=== PATIENT | female | born 1980 | race African-American/Black ===

== ENCOUNTER 2016-10-03 14:39 | Inpatient (IN) | payer MEDICAID ==
[~2016-10-03 14:39] MED LIST: AMPICILLIN SODIUM/SULBACTAM NA 3 GM in NORMAL SALINE 100 ML IV SCH
[2016-10-03] MEDS ORDERED: OXYTOCIN/NORMAL SALINE 20 UNIT/1,000 ML RTUINJ ONE (14:54)
[2016-10-03] MEDS ORDERED: LIDOCAINE 1% INJ-PF (10 MG/ML) 30 ML SDV ONE ×2 (15:04→15:34)
[2016-10-03] MEDS ORDERED: MEPERIDINE HCL/PF INJ 25 MG/1 ML DISP.SYRIN ONE (15:04)
[2016-10-03] MEDS ORDERED: AMPICILLIN SOD/SULBACTAM 3 GM VIAL ONE (15:26)
[2016-10-03 15:45] LABS: APPEARANCE,URINE CLEAR; BILIRUBIN,URINE NEGATIVE (NEGATIVE); GLUCOSE, URINE NEGATIVE (NEGATIVE); KETONES,URINE 20 mg/dL (NEGATIVE); LEUKOCYTE ESTERASE,URINE NEGATIVE (NEGATIVE); NITRITE,URINE NEGATIVE (NEGATIVE); PROTEIN,URINE NEGATIVE (NEGATIVE); URINE SPECIFIC GRAVITY 1.008; UROBILINOGEN,URINE NEGATIVE mg/dL (<2.0)
[2016-10-03 15:53] LABS: ABSOLUTE LYMPHOCYTES (AUTO) 0.9 10^3/uL (0.5-4.7); ABSOLUTE MONOCYTES (AUTO) 0.4 10^3/uL (0.1-1.4); ABSOLUTE NEUT (AUTO) 12.8 10^3/uL (1.7-8.2); BASOPHILS % (AUTO) 0.3 % (0-2); HEMATOCRIT 38.4 % (36.0-47.0); HEMOGLOBIN 12.6 g/dL (12.0-15.5); HGB HCT DIFFERENCE -0.6; LYMPHOCYTES % (AUTO) 6.5 % (13-45); MEAN CORPUSCULAR HEMOGLOBIN 25.9 pg (27.0-33.4); MEAN CORPUSCULAR HGB CONC 32.8 g/dL (32.0-36.0); MEAN CORPUSCULAR VOLUME 79 fl (80-97); MONOCYTES % (AUTO) 2.6 % (3-13); RED BLOOD COUNT 4.87 10^6/uL (3.72-5.28); RED CELL DISTRIBUTION WIDTH 17.1 % (11.5-14.0); SEGMENTED NEUTROPHILS % (AUTO) 90.6 % (42-78); WHITE BLOOD COUNT 14.2 10^3/uL (4.0-10.5)
[2016-10-03 15:56] LABS: URINE BARBITURATES SCREEN NEGATIVE; URINE METHADONE SCREEN NEGATIVE; URINE OPIATES LOW NEGATIVE; URINE PHENCYCLIDINE SCREEN NEGATIVE
[2016-10-03] MEDS ORDERED: BENZOCAINE/MENTHOL AEROSOL SPRAY 56 ML TOP PRN (16:10)
[2016-10-03] MEDS ORDERED: ZOLPIDEM TARTRATE 5 MG TABLET PO PRN (16:10)
[2016-10-03] MEDS ORDERED: MEASLES,MUMPS&RUBELLA VACC/PF 0.5 ML VIAL SUBCUT PRN (16:10)
[2016-10-03] MEDS ORDERED: OXYTOCIN/NORMAL SALINE 1,000 ML IV PRN (16:10)
[2016-10-03] MEDS ORDERED: DIBUCAINE 1% OINTMENT 28 GM TP PRN (16:10)
[2016-10-03] MEDS ORDERED: DIPH/PERTUSS(ACELL)/TETANUS VAC/PF 0.5 ML SYR (>=10YO) IM PRN (16:10)
[2016-10-03] MEDS ORDERED: ACETAMINOPHEN WITH CODEINE #3 TABLET PO PRN ×2 (16:10)
[2016-10-03 16:54] LABS: ADD HIVPANEL? NO; HIV (1 AND 2) ANTIBODY NEGATIVE (NEGATIVE)
[2016-10-03] MEDS ORDERED: AMPICILLIN SOD/SULBACTAM 3 GM VIAL IV SCH (18:00)
--- NOTE | 2016-10-03 19:00 | L&D Flow Sheet ---
LD Flowsheet Datetime Report Generated by CPN: 10/03/2016 19:00 Datetime: 10/03/2016 17:54 NBP Sys/Corina/Mean (mmHg): 111 (QS system process) : 68 (QS system process) : 84 (QS system process) Pulse: 64 (QS system process) Respirations: 18 ([facility]) Temperature (F): 98.1 ([facility]) Temperature (C): 36.7 (QS system process) Temperature Route: Oral ([facility], [facility]) Pain Pain Scale: 0 ([place] [place], [facility]) Pain Presence: None/Denies ([facility], [facility]) Pain Type: N/A ([facility], [facility]) Pain Relief Measures: Comfort Measures ([place], [facility]) Pain Assessment Comments: Denies pain on transfer ([place], [facility]) Datetime: 10/03/2016 17:46 NBP Sys/Corina/Mean (mmHg): 121 (QS system process) : 77 (QS system process) : 92 (QS system process) Pulse: 59 (QS system process) Respirations: 18 ([place], [facility]) Pain Pain Scale: 1 ([place] [place], [facility]) Pain Presence: Intermittent ([facility] [place], [facility]) Pain Type: Cramping ([place] [place], [facility]) Pain Location: Abdomen ([place] [place], [facility]) Pain Goal: 1 ([place] [place], [facility]) Datetime: 10/03/2016 17:31 NBP Sys/Corina/Mean (mmHg): 115 (QS system process) : 65 (QS system process) : 84 (QS system process) Pulse: 66 (QS system process) Respirations: 17 ([place], [facility]) Datetime: 10/03/2016 17:16 NBP Sys/Corina/Mean (mmHg): 121 (QS system process) : 76 (QS system process) : 93 (QS system process) Pulse: 57 (QS system process) Respirations: 18 ([place] [place], [facility]) Pain Pain Scale: 1 ([place] [place], [facility]) Pain Presence: Intermittent ([facility] [place], [facility]) Pain Type: Cramping ([facility] [place], [facility]) Pain Location: Abdomen ([place] [place], [facility]) Pain Relief Measures: Comfort Measures (Annotations: ice pack reapplied to perineum) ([place] [place], [facility]) Datetime: 10/03/2016 17:01 NBP Sys/Corina/Mean (mmHg): 121 (QS system process) : 65 (QS system process) : 88 (QS system process) Pulse: 68 (QS system process) Datetime: 10/03/2016 16:46 NBP Sys/Corina/Mean (mmHg): 124 (QS system process) : 69 (QS system process) : 91 (QS system process) Pulse: 63 (QS system process) Respirations: 18 ([place] [place], [facility]) Pain Pain Scale: 1 ([place] [place], [facility]) Pain Presence: Intermittent ([place] [place], [facility]) Pain Type: Cramping ([place] [place], [facility]) Pain Location: Abdomen ([place] [place], [facility]) Pain Goal: 1 ([place] [place], [facility]) Pain Relief Measures: Pain Medication Given; Comfort Measures ([place], [facility]) Datetime: 10/03/2016 16:31 NBP Sys/Corina/Mean (mmHg): 121 (QS system process) : 68 (QS system process) : 88 (QS system process) Pulse: 64 (QS system process) Respirations: 17 ([place] [place], [facility]) Pain Pain Scale: 1 ([place], [facility]) Pain Presence: Intermittent ([place] [place], [facility]) Pain Type: Cramping ([place] [place], [facility]) Pain Location: Abdomen ([place] [place], [facility]) Pain Goal: 1 ([place] [place], [facility]) Pain Relief Measures: Pain Medication Given; Comfort Measures ([place], [facility]) Datetime: 10/03/2016 16:16 NBP Sys/Corina/Mean (mmHg): 128 (QS system process) : 66 (QS system process) : 91 (QS system process) Pulse: 62 (QS system process) Respirations: 18 ([place] [place], [facility]) Pain Pain Scale: 1 ([place] [place], [facility]) Pain Presence: Intermittent ([place] [place], [facility]) Pain Type: Cramping ([place] [place], [facility]) Pain Location: Abdomen ([facility] [place], [facility]) Pain Goal: 1 ([place] [place], [facility]) Pain Relief Measures: Pain Medication Given; Comfort Measures ([place], [facility]) Pain Assessment Comments: smiling denies increasing pain ([place], [facility]) Datetime: 10/03/2016 16:01 NBP Sys/Corina/Mean (mmHg): 121 (QS system process) : 62 (QS system process) : 85 (QS system process) Pulse: 66 (QS system process) Respirations: 20 ([place] [place], [facility]) Pain Pain Scale: 1 ([place], [facility]) Pain Presence: Intermittent ([place] [place], [facility]) Pain Type: Cramping ([place] [place], [facility]) Pain Location: Abdomen ([place] [place], [facility]) Pain Goal: 1 ([place] [place], [facility]) Pain Relief Measures: Comfort Measures ([place], [facility]) Datetime: 10/03/2016 15:48 NBP Sys/Corina/Mean (mmHg): 120 (QS system process) : 63 (QS system process) : 85 (QS system process) Pulse: 67 (QS system process) Respirations: 18 ([place] [place], [facility]) Pain Pain Scale: 1 ([place] [place], [facility]) Pain Presence: Intermittent ([place] [place], [facility]) Pain Type: Cramping ([place] [place], [facility]) Pain Location: Abdomen ([place] [place], [facility]) Pain Goal: 1 ([place], [facility]) Pain Relief Measures: Comfort Measures ([place], [facility]) Patient Care I/O Interventions: Sandoval Cath Inserted ([place], [facility]) Datetime: 10/03/2016 15:33 NBP Sys/Corina/Mean (mmHg): 134 (QS system process) : 73 (QS system process) : 96 (QS system process) Pulse: 65 (QS system process) Antibiotics: Start Antibiotics; Unasyn (Gm) @ 3gms iv ([place], [facility]) Datetime: 10/03/2016 15:30 Patient Care Comments: periurethral laceration and vaginal laceration repaired ([place], [facility]) Datetime: 10/03/2016 15:29 NBP Sys/Corina/Mean (mmHg): 130 (QS system process) : 68 (QS system process) : 93 (QS system process) Pulse: 65 (QS system process) Respirations: 18 ([facility], [facility]) Temperature (F): 98.2 ([facility], [facility]) Temperature (C): 36.8 (QS system process) Temperature Route: Oral ([place], [facility]) Pain Pain Scale: 1 ([place] [place], [facility]) Pain Presence: Intermittent ([place], [facility]) Pain Type: Cramping ([place], [facility]) Pain Location: Abdomen ([place], [facility]) Pain Goal: 1 ([place], [facility]) Pain Relief Measures: Comfort Measures (Annotations: ice pack to perineum) ([place], [facility]) Datetime: 10/03/2016 15:28 Vaginal Exam Membranes Rupture Method: Spontaneous ([place] [place], [facility]) Amniotic Fluid Color: Moderate Meconium ([place] [place], [facility]) Amniotic Fluid Amount: None ([place] [place], [facility]) Amniotic Fluid Odor: Foul ([place] [place], [facility]) Datetime: 10/03/2016 15:25 Patient Care Comments: Manual removal of placenta per Dr Ferny del intact ([place], [facility]) Datetime: 10/03/2016 15:24 NBP Sys/Corina/Mean (mmHg): 134 (QS system process) : 82 (QS system process) : 103 (QS system process) Pulse: 90 (QS system process) Datetime: 10/03/2016 15:23 Patient Care I/O Interventions: Straight Cath (ml) @ 100 ([place] [place], [facility]) Datetime: 10/03/2016 15:22 Patient Care Comments: Up to lithotomy for examination and repair. Dr Ferny at bedside ([place], [facility]) Datetime: 10/03/2016 15:19 NBP Sys/Corina/Mean (mmHg): 135 (QS system process) : 81 (QS system process) : 99 (QS system process) Pulse: 73 (QS system process) Datetime: 10/03/2016 15:15 Communication Communication: RN at Bedside; Provider at Bedside ([place], [facility]) Datetime: 10/03/2016 15:12 Medications Analgesics/Sedatives: Demerol (mg) @ 50, IVP (Ellen Sosa, [facility]) Datetime: 10/03/2016 15:07 Patient Care Comments: with history of del outside of hospital at approximately 1329 arrives via stretcher, alert and oriented x3 taken directly to NBN . Assisted to bed, provider Ronan Barcenas CNM at bedside for assessment . Attempted delivery of placenta . Unable to deliver placenta . Dr Isaacs on unit asked to bedside for assessment . (Ellen Sosa, R[facility]) Datetime: 10/03/2016 14:00 Vital Signs Stage of : Recovery ([place], [facility])
[2016-10-03] MEDS: DOCUSATE SODIUM 100 MG CAPSULE PO SCH (19:51)
[2016-10-03] MEDS: FERROUS SULFATE 325 MG TABLET PO SCH (19:51)
[2016-10-03] MEDS: IBUPROFEN 800 MG TABLET PO SCH (21:08)
[2016-10-03] MEDS ORDERED: RINGERS SOLUTION,LACTATED 1,000 ML IV PRN (21:08)
[2016-10-04] MEDS ORDERED: AMPICILLIN SODIUM/SULBACTAM NA 3 GM in NORMAL SALINE 100 ML IV SCH (02:00)
[2016-10-04] MEDS: IBUPROFEN 800 MG TABLET PO SCH ×3 (05:03→22:10)
--- NOTE | 2016-10-04 06:00 | L&D General Admission ---
General Admit Datetime Report Generated by CPN: 10/04/2016 06:00 INFORMATION Patient Age: 36 (10/03/2016 14:40:QS system process) : 2 (10/03/2016 15:28:ТАТЬЯНА [facility]) Para: 1 (10/03/2016 15:28:ТАТЬЯНА [place]) Term: 1 (10/03/2016 15:28:ТАТЬЯНА [place]) : 0 (10/03/2016 15:28:ТАТЬЯНА [place]) Spontaneous Abortions: 1 (10/03/2016 15:28:Ellen Sosa [facility]) Induced Abortions: 0 (10/03/2016 15:28:Ellen Sosa RNFabiola) Livin (10/03/2016 15:28:ТАТЬЯНА [place]) Cesareans: 0 (10/03/2016 15:28:ТАТЬЯНА [place]) VBACs: 0 (10/03/2016 15:28:Т[facility]ТЬЯНА [place]) Ectopic: 0 (10/03/2016 15:28:Т[facility]ТЬЯНА [place]) Multiple Births: 0 (10/03/2016 15:28:[facility], [facility]) Baby, Number in Womb: 0 (10/03/2016 15:28:[facility]) CARE Primary Building Performance Consultant: none (10/03/2016 15:28:[facility], [facility]) Month of 1st Visit: no care (10/03/2016 15:28:[facility], [facility]) Adequate Care: N/A (10/03/2016 15:28:[facility], [facility]) Prepregnancy Weight (lb): 220 (10/03/2016 15:28:[facility], [facility]) Prepregnancy Weight (kg): 100.0 (10/03/2016 15:28:QS system process) Height (in): 67 (10/03/2016 18:04:QS system process) ALLERGIES Medication Allergy: No (10/03/2016 15:28:[facility], [facility]) Medication Allergies: No Known Allergies (10/03/2016) (10/03/2016 16:08:QS system process) Latex Allergy: No Latex Allergies (10/03/2016 15:28:[place] [place], [facility]) COMMUNICATION Primary Language: Lithuanian (10/03/2016 15:28:[place], [facility]) Medical Tx Preferred Language: Lithuanian (10/03/2016 15:28:[place] [place], [facility]) Communication Barrier(s): None (10/03/2016 15:28:[place] [place], [facility]) DEMOGRAPHICS Address: [address] [place] [address], [address] [place] [address] (10/03/2016 14:40:QS system process) Zipcode: [address] (10/03/2016 14:40:QS system process) Home (10/03/2016 14:40:QS system process) SSN: [id number] (10/03/2016 14:40:QS system process) Next of Kin Name: ADARSH WILSON (10/03/2016 14:40:QS system process) Next of Kin (10/03/2016 14:40:QS system process) Next of Kin Relationship: OR (10/03/2016 14:40:QS system process) Date of : 1980 (10/03/2016 14:40:QS system process) Marital Status: Single (10/03/2016 14:40:QS system process) Sex: Female (10/03/2016 14:40:QS system process) Occupation: None (10/03/2016 15:28:ТАТЬЯНА [place]) Race: (10/03/2016 14:40:QS system process) Ethnicity: Non- or (10/03/2016 14:40:QS system process) Baptist: None (10/03/2016 14:40:QS system process) Education: 8 (10/03/2016 15:28:ТАТЬЯНА [place]) FOB Involved: No (10/03/2016 15:28:ТАТЬЯНА [place]) Father of Baby Name: unknown (10/03/2016 15:28:ТАТЬЯНА [place]) DRUG AND ALCOHOL USE Alcohol: Yes (10/03/2016 15:28:Т[facility]ТЬЯНА [place]) Average Alcohol Consumption: <2 per day (10/03/2016 15:28:Т[facility]ТЬЯНА [place]) Alcohol Comments: states she drank 1-2 weekly throughout (10/03/2016 15:28:ТАТЬЯНА [place]) Cigarettes: Current Everyday Smoker. [id number] (10/03/2016 15:28:Т[facility]ТЬЯНА [place]) Marijuana: Yes (10/03/2016 15:28:Т[facility]ТЬЯНА [place]) Marijuana How Long Used (yr): unsure (10/03/2016 15:28:Т[facility]ТЬЯНА [place]) Marijuana Previous Treatment: None (10/03/2016 15:28:[facility], [facility]) Marijuana Date Last Used: 08/02/2016 00:00 (10/03/2016 15:28:[facility]) Marijuana Comments: poor historian (10/03/2016 15:28:[facility], [facility]) Cocaine: No (10/03/2016 15:28:[facility], [facility]) Cocaine Previous Treatment: None (10/03/2016 15:28:[facility]) Cocaine Comments: poor historian (10/03/2016 15:28:[facility], [facility]) Other Illicit Drugs: No (10/03/2016 15:28:[place], [facility]) VACCINE HISTORY Influenza Vaccine: No (10/03/2016 15:28:[facility]) Pneumococcal Vaccine: No (10/03/2016 15:28:[facility]) Tetanus Vaccine: No (10/03/2016 15:28:[facility]) Tdap Vaccine: No (10/03/2016 15:28:[facility]) Hepatitis B Vaccine: No (10/03/2016 15:28:[facility]) Supervisor Smoke Control: [facility] (10/03/2016 15:28:ТАТЬЯНА [place]) Feeding Preference: Formula (10/03/2016 15:28:ТАТЬЯНА [place]) Circumcision: N/A (10/03/2016 15:28:Т[facility]ТЬЯНА [place]) Classes Attended: No (10/03/2016 15:28:Т[facility]ТЬЯНА [place]) Tubal Ligation: No (10/03/2016 15:28:Т[facility]ТЬЯНА [place]) Tubal Authorization Signed: N/A (10/03/2016 15:28:Т[facility]ТЬЯНА [place]) Consent: N/A (10/03/2016 15:28:Т[facility]ТЬЯНА [place]) Consent Signed: N/A (10/03/2016 15:28:Т[facility]ЯНА [place]) Pain Management Plans: None (10/03/2016 15:28:ТАТЬЯНА [place]) Plans for Labor and Delivery: None (10/03/2016 15:28:Т[facility]ТЬЯНА [place]) Support Person: Innetta Keating (10/03/2016 15:28:ТАТЬЯНА [place]) Support Person Relationship: Sister (10/03/2016 15:28:ТАТЬЯНА [place]) Cultural/Spritual Practice: No (10/03/2016 15:28:ТАТЬЯНА [place]) Spir/Cult Dietary Needs: No (10/03/2016 15:28:ТАТЬЯНА [place]) LIVING SITUATION/DISCHARGE PLAN Living Arrangements: mobile home (10/03/2016 15:28:ТАТЬЯНА [place]) Adequate Access to:: Electric; Heat; Refrigeration; Plumbing/Running water; Phone (10/03/2016 15:28:ТАТЬЯНА [place]) WIC Program: Yes (10/03/2016 15:28:Т[facility]ТЬЯНА [place]) Discharge Engineer Assistant Person: [facility] (10/03/2016 15:28:ТАТЬЯНА [place]) Person to Help after Discharge: [facility] (10/03/2016 15:28:ТАТЬЯНА [place]) Currently Using Commun Resources: Yes (10/03/2016 15:28:ТАТЬЯНА [place]) Specify Current Resource Used: medicaid (10/03/2016 15:28:ТАТЬЯНА [place]) Outside Agency/Internal Controls Consultant: No (10/03/2016 15:28:ТАТЬЯНА [place]) Car Seat for Discharge: No (10/03/2016 15:28:ТАТЬЯНА [place]) Adoption Requested: No (10/03/2016 15:28:ТАТЬЯНА [place]) Pt Contact w/infant Post : N/A (10/03/2016 15:28:ТАТЬЯНА [place]) LABS Hemoglobin: 12.6 (10/03/2016 15:25:QS system process) Hematocrit: 38.4 (10/03/2016 15:25:QS system process) MCV: 79 L (10/03/2016 15:25:QS system process) Group Beta Strep: unknown (10/03/2016 15:28:ТАТЬЯНА [place]) HIV Results: NEGATIVE (10/03/2016 15:45:QS system process) Rubella: POSITIVE NEGATIVE IF LESS THAN OR EQUAL TO 9.99 IU/mL POSITIVE IF GREATER THAN OR EQUAL TO 10.0 IU/mL (10/03/2016 15:25:QS system process) Rubella Titer: 19.80 (10/03/2016 15:25:QS system process) OB/PREVIOUS HISTORY Previous Procedures: None (10/03/2016 15:28:ТАТЬЯНА [place]) Current Procedures: None (10/03/2016 15:28:ТАТЬЯНА [place]) History of Previous : No (10/03/2016 15:28:ТАТЬЯНА [place]) History of Gestational Diabetes: No (10/03/2016 15:28:ТАТЬЯНА [place]) History of PIH: No (10/03/2016 15:28:ТАТЬЯНА [place]) History of Incompetent Cervix: No (10/03/2016 15:28:ТАТЬЯНА [place]) History of Placenta Previa/Abrup: No (10/03/2016 15:28:ТАТЬЯНА [place]) History of Macrosomia: No (10/03/2016 15:28:ТАТЬЯНА [place]) History of IUGR: No (10/03/2016 15:28:ТАТЬЯНА [place]) History of Hemorrhage: No (10/03/2016 15:28:ТАТЬЯНА [place]) History of Loss/Stillborn: No (10/03/2016 15:28:ТАТЬЯНА [place]) History of : No (10/03/2016 15:28:ТАТЬЯНА [place]) History of D (Rh) Sensitization: No (10/03/2016 15:28:ТАТЬЯНА [place]) History Recurrent Loss/Stillborn: No (10/03/2016 15:28:ТАТЬЯНА [place]) History Depression/PP Depression: No (10/03/2016 15:28:ТАТЬЯНА [place]) History of Uterine Anomaly/JOSY: No (10/03/2016 15:28:ТАТЬЯНА [place]) History of Infertility: No (10/03/2016 15:28:ТАТЬЯНА [place]) History of ART Treatment: No (10/03/2016 15:28:ТАТЬЯНА [place]) History of JOSY: No (10/03/2016 15:28:ТАТЬЯНА [place]) Comments Obstetrical History: None G-1 early SAB G2- no care, delivered at home, denies knowledge of (10/03/2016 15:28:ТАТЬЯНА [place]) MEDICAL HISTORY Med Hx Diabetes: No (10/03/2016 15:28:ТАТЬЯНА [place]) Med Hx Hypertension: No (10/03/2016 15:28:ТАТЬЯНА [place]) Med Hx Heart Disease: No (10/03/2016 15:28:ТАТЬЯНА [place]) Med Hx Autoimmune Disorder: No (10/03/2016 15:28:ТАТЬЯНА [place]) Med Hx Kidney Disease/UTI: No (10/03/2016 15:28:ТАТЬЯНА [place]) Med Hx Neurologic/Epilepsy: No (10/03/2016 15:28:ТАТЬЯНА [place]) Med Hx Psychiatric Disorders: No (10/03/2016 15:28:ТАТЬЯНА [place]) Med Hx Hepatitis/Liver Disease: No (10/03/2016 15:28:ТАТЬЯНА [place]) Med Hx Varicosities/Phlebitis: No (10/03/2016 15:28:ТАТЬЯНА [place]) Med Hx Thyroid Dysfunction: No (10/03/2016 15:28:ТАТЬЯНА [place]) Med Hx Trauma/Violence: No (10/03/2016 15:28:ТАТЬЯНА [place]) Med Hx Blood Transfusion: No (10/03/2016 15:28:ТАТЬЯНА [place]) Med Hx Pulmonary (Asthma,TB): No (10/03/2016 15:28:Ellen Sosa [facility]) Med Hx Breast: No (10/03/2016 15:28:ТАТЬЯНА [place]) Med Hx OFFICE EQUIPMENT MECHANIC Surgery: No (10/03/2016 15:28:ТАТЬЯНА [place]) Med Hx Hospitalization/Surgery: No (10/03/2016 15:28:ТАТЬЯНА [place]) Med Hx Anesthetic Complications: No (10/03/2016 15:28:ТАТЬЯНА [place]) Med Hx Abnormal Pap Smear: No (10/03/2016 15:28:Ellen Sosa [facility]) Other Medical Diseases: No (10/03/2016 15:28:Ellen Sosa [facility]) Med Hx Significant Family Hx: No (10/03/2016 15:28:Ellen Sosa [facility]) INFECTIOUS HISTORY Inf Hx Gonorrhea: No (10/03/2016 15:28:Ellen Sosa [facility]) Inf Hx Chlamydia: No (10/03/2016 15:28:Ellen Sosa [facility]) Inf Hx Syphilis: No (10/03/2016 15:28:Ellen Sosa [facility]) Inf Hx HIV/AIDS: No (10[facility]03/2016 [facility] Inf Hx Human Papilloma Virus: No (10/03/2016 [facility] Inf Hx Pt/Partner Genital Herpes: No (10/03/2016 [facility] Inf Hx Tuberculosis/Exposure: No (10/03/2016 15:[facility] Inf Hx Hepatitis B,C: No (10/03/2016 15:[facility] Inf Hx Rash or Viral Illness: No (10/03/2016 15:28:[facility]) Details of Infectious Hx: denies, poor historian (10/03/2016 [facility] GENETIC HISTORY Gen Hx Age >=35 at [place]: No (10/03/2016 [facility]:28[facility] Gen Hx Thalassemia: No (10/03/2016 [facility] Gen Hx Congenital Heart Defect: No (10/03/2016 15:[facility] Gen Hx Neural Tube Defect: No (10/03/2016 15:28:[facility]) Gen Hx Down's Syndrome: No (10/03/2016 [facility] Gen Hx Davonte-Sachs: No (10/03/2016 15:28[facility] Gen Hx Roosevelt: No (10/03/2016 [facility] Gen Hx Familial Dysautonomia: No (10/03/2016 15:28:ТАТЬЯНА [place]) Gen Hx Sickle Cell Disease/Trait: No (10/03/2016 15:28:ТАТЬЯНА [place]) Gen Hx Hemophilia/Blood Disorder: No (10/03/2016 15:28:ТАТЬЯНА [place]) Gen Hx Muscular Dystrophy: No (10/03/2016 15:28:ТАТЬЯНА [place]) Gen Hx Cystic Fibrosis: No (10/03/2016 15:28:ТАТЬЯНА [place]) Gen Hx Huntingtons Chorea: No (10/03/2016 15:28:Т[facility]ТЬЯНА [place]) Gen Hx Mental Retardation/Autism: No (10/03/2016 15:28:ТАТЬЯНА [place]) Gen Hx Tested for Fragile X: No (10/03/2016 15:28:ТАТЬЯНА [place]) Gen Hx Other Inher/Chromosomal: No (10/03/2016 15:28:ТАТЬЯНА [place]) Gen Hx Maternal Metabolic DO: No (10/03/2016 15:28:ТАТЬЯНА [place]) Gen Hx Pt Father or FOB Defect: No (10/03/2016 15:28:ТАТЬЯНА [place]) Gen Hx Other Genetic History: No (10/03/2016 15:28:ТАТЬЯНА [place]) Gen Hx Drugs/Meds since LMP: No (10/03/2016 15:28:ТАТЬЯНА [place]) Details of Genetic History: poor historian, no care, fob information unavailable (10/03/2016 15:28:ТАТЬЯНА [place])
--- NOTE | 2016-10-04 06:00 | L&D Current Admission ---
Current Admit Datetime Report Generated by CPN: 10/04/2016 06:00 ADMISSION INFORMATION Current Admit Date/Time: 10/03/2016 14:28 (10/03/2016 16:13:Т[facility]ТЬЯНА [place]) Reason for Admission: Other (10/03/2016 16:13:ТАТЬЯНА [place]) Other Reason for Admission: delivered at home, no care (10/03/2016 16:13:ТАТЬЯНА [place]) Chief Complaint: Other (10/03/2016 16:13:ТАТЬЯНА [place]) Meds During -Oth: none per pt (10/03/2016 16:13:ТАТЬЯНА [place]) Method of Arrival: Ambulance (10/03/2016 16:13:ТАТЬЯНА [place]) Admitted From: Home (10/03/2016 16:13:ТАТЬЯНА [place]) Reason for Induction: Not Applicable (10/03/2016 16:13:ТАТЬЯНА [place]) Records Available: No (10/03/2016 16:13:ТАТЬЯНА [place]) General Admission Information: Reviewed; Updated; Confirmed (10/03/2016 16:13:ТАТЬЯНА [place]) General Admission Reviewed By: Ellen VAZ (10/03/2016 16:13:ТАТЬЯНА [place]) BELONGINGS/ADVANCED DIRECTIVES Disposition of Belongings: Kept with Patient (10/03/2016 16:13:ТАТЬЯНА [place]) Comments Regarding Disposition: see [facility] valuables consent form (10/03/2016 16:13:ТАТЬЯНА Monte[place]) Advance Direct for Healthcare: No, and Wants No Information (10/03/2016 16:13:ТАТЬЯНА [place]) Durable Power of Automotive Technician: No (10/03/2016 16:13:ТАТЬЯНА [place]) Living Will: No (10/03/2016 16:13:ТАТЬЯНА [place]) Organ Donor: Yes (10/03/2016 16:13:ТАТЬЯНА [place]) Pt Rights Information Given: N/A (10/03/2016 16:13:ТАТЬЯНА [place]) Pt Understands Pt Rights: N/A (10/03/2016 16:13:ТАТЬЯНА [place]) Patient Rights Comments: arrived via EMS after at home delivery, no care (10/03/2016 16:13:ТАТЬЯНА [place]) LEARNING ASSESSMENT Knowledge Level: Understands Care Activities (10/03/2016 16:13:ТАТЬЯНА [place]) Barriers to Learning: None (10/03/2016 16:13:ТАТЬЯНА [place]) Learning Readiness: Motivated (10/03/2016 16:13:ТАТЬЯНА [place]) Learns Best By: Group Discussion (10/03/2016 16:13:ТАТЬЯНА [place]) Learning Needs: Pain Management; Symptoms to Report; Treatment Plan; Medication; Diagnosis; Nutrition; Infant Care; Community Resources (10/03/2016 16:13:ТАТЬЯНА [place]) DOMESTIC VIOLANCE SCREENING Dom Viol Threatened/Hurt: No (10/03/2016 16:13:ТАТЬЯНА [place]) Hx of Abuse/Neglect past 2yrs: No (10/03/2016 16:13:ТАТЬЯНА [place]) Feel Unsafe Going Home: No (10/03/2016 16:13:ТАТЬЯНА [place]) Addt'l Observ Indicating Abuse: No (10/03/2016 16:13:ТАТЬЯНА [place]) Reason Unable to Complete Screen: N/A, Screen Completed (10/03/2016 16:13:ТАТЬЯНА [place]) Considered Personal Harm/Suicide: No (10/03/2016 16:13:ТАТЬЯНА [place]) NUTRITIONAL/FUNCTIONAL SCREENING Problem with Appetite >5 Days: No (10/03/2016 16:13:ТАТЬЯНА [place]) Chew/Swallow Difficulties: No (10/03/2016 16:13:ТАТЬЯНА [place]) Inappropriate Wt Gain/Loss: No (10/03/2016 16:13:ТАТЬЯНА [place]) Presence Skin Breakdown/Ulcer: No (10/03/2016 16:13:ТАТЬЯНА [place]) Special Diet: No (10/03/2016 16:13:ТАТЬЯНА [place]) 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
--- NOTE | 2016-10-04 06:15 | L&D Care Plan ---
LD CARE PLANS Datetime Report Generated by CPN: 10/04/2016 06:15 Datetime: 10/03/2016 15:48 Pain State: Actual (Ellen Camp, RNC) Related To: Treatment and Procedures; Post (Ellen Camp, RNC) Goal(s): Patients Pain will be Assessed and Managed; Patient will Verbalize Adequate Relief of Pain or the Ability to [place] with Current Pain (Ellen Camp, RNC) Interventions: Assess Pain Severity on Scale of 0 (None) to 5 (Severe); Assess Type, Location and Intensity of Pain Each Time Client Reports Discomfort and Notify Provider if Unusal Pain Develops; Encourage Proper Breathing and Relaxation Techniques; Offer Alternatives Such as Repositioning, Calm Environment, Massages, Diversional Activities, Ice Pack, Splinting, and Ambulation; Administer Analgesics as Ordered; Assist with Epidural Placement as Appropriate; Evaluate Therapeutic Effectiveness of Medication and Treatments (Ellen Sosa, ТАТЬЯНА) Outcome: Patient will Report Absence or Relief of Pain Consistent with Established Pain Goal (ТАТЬЯНА Monte[place]) Status: Ongoing (ТАТЬЯНА Montejo) Outcome: Patient will have a Decrease in Signs and Symptoms of Discomfort (ТАТЬЯНА Montejo) Status: Ongoing (ТАТЬЯНА Montejo) Outcome: Pain will be Controlled During Procedures (ТАТЬЯНА Montejo) Status: Ongoing (ТАТЬЯНА Montejo) Anxiety State: Actual (ТАТЬЯНА Montejo) Related To: Perceived or Actual Threat to ; Fear of Unknown; Situational Crisis; Medical Interventions; Significant Life Event (ТАТЬЯНА Montejo) Goal(s): Patient will have Decreased Anxiety and be able to Function at Acceptable Levels (ТАТЬЯНА Montejo) Interventions: Assess Verbal and Nonverbal Behavioral Indicators of Anxiety; Assist Patient to Identify and Verbalize Symptoms of Anxiety; Identify and Demonstrate Techniques to Control Anxiety; Assist Patient with Coping Mechanisms to Manage Anxiety; Provide Theraputic Touch for the Patient; Explain to Patient, Using a Calm Reassuring Approach and Nonmedical Terms, All Activities, Procedures, and Concerns; Instruct Patient and Family about Post Discharge Care, Limitations, Symptoms to Report and Resources Available (ТАТЬЯНА Montejo) Outcome: Patient will Identify, Verbalize and Demonstrate Techniques to Control Anxiety (ТАТЬЯНА Montejo) Status: Ongoing (Ellen Sosa RNC) Outcome: Patient's Posture, Facial Expressions, Gestures and Activity Level will Reflect Decreased Anxiety (Ellen Sosa, PREMA) Status: Ongoing (Ellen Sosa, RN) Outcome: Patient will Verbalize a Sense of Control and/or Acceptance of the Situation (Ellen Sosa, RNC) Status: Ongoing (Ellen Sosa, RN) Outcome: Patient will Identify and Utilize Support Person (Ellen Sosa [facility]) Status: Ongoing (Ellen Sosa [facility]) Knowledge Deficit State: Actual (Ellen Sosa, PREMA) Related To: Treatment and Procedures; Feeding and Infant Care; Community Resources and Available Support Mechanisms (Ellen Sosa, ТАТЬЯНА) Goal(s): Patient will Accurately Verbalize Understanding of Plan of Care and Treatment; Patient and Family will Accurately Verbalize Understanding of the Disease Process (ТАТЬЯНА Montejo) Interventions: Assess Motivation and Willingness of Patient/Family to Learn; Assess Preferred Learning Mode: One to One Instruction, Reading, Videos, Group Discussion or Demonstration; Assess Barriers to Learning: Pain, Emotional State, Language Barrier, Cognitive Impairment, Visual or Hearing Deficits; Assess Patient and Family Knowledge of Disease Process, Medications and Treatment; Discuss Therapy and/or Treatment Options, Describe Rationale Behind Management, Therapy and Treatment Recommendations; Instruct Patient and Family on Signs and Symptoms to Report; Instruct Patient and Family on Medication Effects and Side Effects; Provide Appropriate and Timely Education Using Multiple Techniques; Provide Patient and Family with Support Group Information and Resources; Give Clear and Thorough Explanations and Demonstrations (Ellen Sosa, ТАТЬЯНА) Outcome: Patient and Family will Verbalize Understanding of Condition, Treatment and Signs and Symptoms to Report (ТАТЬЯНА Montejo) Status: Ongoing (Ellen Sosa [facility]) Outcome: Patient will Identify Perceived Learning Needs and Express Motivation to Learn (ТАТЬЯНА Montejo) Status: Ongoing (ТАТЬЯНА Montejo) Outcome: Patient will Verbalize Understanding of Desired Content, and/or Performs Desired Skill Prior to Discharge (ТАТЬЯНА Montejo) Status: Ongoing (ТАТЬЯНА Montejo)
[2016-10-04 08:03] LABS: HEMATOCRIT 33.3 % (36.0-47.0); HEMOGLOBIN 10.8 g/dL (12.0-15.5); HGB HCT DIFFERENCE -0.9; MEAN CORPUSCULAR HEMOGLOBIN 25.5 pg (27.0-33.4); MEAN CORPUSCULAR HGB CONC 32.4 g/dL (32.0-36.0); MEAN CORPUSCULAR VOLUME 79 fl (80-97); RED BLOOD COUNT 4.22 10^6/uL (3.72-5.28); RED CELL DISTRIBUTION WIDTH 17.5 % (11.5-14.0); WHITE BLOOD COUNT 13.5 10^3/uL (4.0-10.5)
--- NOTE | 2016-10-04 09:32 | PDOC PROGRESS REPORT ---
Subjective-OB Subjective: Post Delivery Day: 36 year old. Denies any needs at this time. Pt doing well, no concerns. Reports light bleeding, regular diet. FC to BSD with yellow urine. Physical Exam (OB) Vital Signs: Temp Pulse Resp BP Pulse Ox 98.2 F 77 18 123/70 100 10/04/16 07:44 10/04/16 07:44 10/04/16 07:44 10/04/16 07:44 10/03/16 19:42 Intake & Output 10/03/16 10/04/16 10/05/16 06:59 06:59 06:59 Output Total 2350 Balance -2350 Weight 118.1 kg - Lochia Lochia Amount: Small 10-25 ml Lochia Color: Rubra/Red - Abdomen Description: Tender, Soft Hernia Present: No Fundal Description: Firm, Midline Fundal Height: u/u - u/2 Objective-Diagnostic Laboratory: 10/04/16 07:15 10/03/16 10/03/16 10/03/16 14:26 15:25 15:25 WBC 14.2 H RBC 4.87 Hgb 12.6 Hct 38.4 MCV 79 L MCH 25.9 L MCHC 32.8 RDW 17.1 H Plt Count 244 Seg Neutrophils % 90.6 H Lymphocytes % 6.5 L Monocytes % 2.6 L Eosinophils % 0.0 Basophils % 0.3 Absolute Neutrophils 12.8 H Absolute Lymphocytes 0.9 Absolute Monocytes 0.4 Absolute Eosinophils 0.0 Absolute Basophils 0.0 Urine Color YELLOW Urine Appearance CLEAR Urine pH 7.0 Ur Specific [place] 1.008 Urine Protein NEGATIVE Urine Glucose (UA) NEGATIVE Urine Ketones 20 H Urine Blood LARGE H Urine Nitrite NEGATIVE Ur Leukocyte Esterase NEGATIVE Urine RBC (Auto) 121 Blood Type O POSITIVE Antibody Screen NEGATIVE 10/04/16 07:15 WBC 13.5 H RBC 4.22 Hgb 10.8 L Hct 33.3 L MCV 79 L MCH 25.5 L MCHC 32.4 RDW 17.5 H Plt Count 227 Seg Neutrophils % Lymphocytes % Monocytes % Eosinophils % Basophils % Absolute Neutrophils Absolute Lymphocytes Absolute Monocytes Absolute Eosinophils Absolute Basophils Urine Color Urine Appearance Urine pH Ur Specific [place] Urine Protein Urine Glucose (UA) Urine Ketones Urine Blood Urine Nitrite Ur Leukocyte Esterase Urine RBC (Auto) Blood Type Antibody Screen Assessment and Plan(PN) - Assessment and Plan (1) (spontaneous vaginal delivery) Is this a current diagnosis for this admission?: Yes - Time Spent with Patient Time with patient: Less than 15 minutes Smoking Education Provided: Over 3 minutes Medications reviewed and adjusted accordingly: Yes - Disposition Anticipated Discharge: Home Within: within 48 hours
[2016-10-04] MEDS: PRENATAL VITAMIN W-O CA NO5/FE FUMARATE/FA CAPSULE PO SCH (10:17)
[2016-10-04] MEDS: FERROUS SULFATE 325 MG TABLET PO SCH ×2 (10:17→17:38)
[2016-10-04] MEDS: SENNOSIDES/DOCUSATE 8.6-50 MG 1 EACH TABLET PO SCH (10:17)
[2016-10-04] MEDS: DOCUSATE SODIUM 100 MG CAPSULE PO SCH ×2 (10:17→17:38)
[2016-10-04] MEDS ORDERED: AMPICILLIN SODIUM/SULBACTAM NA 3 GM in NORMAL SALINE 100 ML IV ONE (13:30)
[2016-10-05] MEDS: IBUPROFEN 800 MG TABLET PO SCH ×3 (05:02→21:33)
[2016-10-05 08:42] LABS: HEPATITIS C VIRUS AB <0.1 s/co ratio (0.0-0.9)
[2016-10-05] MEDS: SENNOSIDES/DOCUSATE 8.6-50 MG 1 EACH TABLET PO SCH (10:11)
[2016-10-05] MEDS: FERROUS SULFATE 325 MG TABLET PO SCH ×2 (10:11→17:38)
[2016-10-05] MEDS: DOCUSATE SODIUM 100 MG CAPSULE PO SCH ×2 (10:11→17:38)
[2016-10-05] MEDS: PRENATAL VITAMIN W-O CA NO5/FE FUMARATE/FA CAPSULE PO SCH (10:11)
--- NOTE | 2016-10-05 14:30 | PDOC PROGRESS REPORT ---
Subjective-OB Subjective: Post Delivery Day:2 36 year old s/p ppd2. Pt. reports she has been using toilet paper instead of pads because her bleeding is minimal. She also reports she usually drinks hot chocolate and it usually helps take her bleeding away. Ambulating, voiding and without difficulty. Reports she is also bottle feeding. Denies any needs at this time Physical Exam (OB) Vital Signs: Temp Pulse Resp BP Pulse Ox 98.1 F 82 17 125/83 100 10/05/16 07:37 10/05/16 07:37 10/05/16 07:37 10/05/16 07:37 10/05/16 07:37 Intake & Output 10/04/16 10/05/16 10/06/16 06:59 06:59 06:59 Intake Total 2300 Output Total 2350 2500 Balance -2350 -200 Weight 118.1 kg - General General Appearance: Appears well In distress: None - PIH/Pre-Eclampsia Headache: Absent - Episiotomy/Laceration Site Condition: Well Approximated - Lochia Lochia Amount: Scant < 10 ml Lochia Color: Rubra/Red - Abdomen Description: Soft Hernia Present: No Fundal Description: Firm, Midline Fundal Height: u/u - u/2 - Respiratory Respiratory Status: No respiratory distress - Extremities Upper extremity: Normal inspection Lower extremities: Normal inspection - Neurological Cognition: Normal Orientation: AAOx4 Objective-Diagnostic Laboratory: 10/04/16 07:15 Assessment and Plan(PN) - Assessment and Plan (1) Anemia Qualifiers: Anemia type: unspecified type Qualified Code(s): D64.9 - Anemia, unspecified Is this a current diagnosis for this admission?: YesPlan: iron supplementation (2) (spontaneous vaginal delivery) Is this a current diagnosis for this admission?: YesPlan: continue stay (3) Alcohol abuse affecting Is this a current diagnosis for this admission?: YesPlan: Reports beer intake daily and unaware of . CPS contacted by discharge planning. Psych consult placed. Pt. has been ambulating outside with plastic bags on legs as rain boots, has been drinking baby's formula and other odd behaviors noted by staff. - Time Spent with Patient Time with patient: 15-25 minutes Smoking Education Provided: Over 3 minutes Medications reviewed and adjusted accordingly: Yes - Disposition Anticipated Discharge: Home Within: within 24 hours
--- NOTE | 2016-10-05 18:01 | PSYCHOLOGICAL NOTE ---
Psych Note - Psych Note Psych Note: Patient presented to [facility] after unexpectedly giving at home. Patient states she did not know she was . She continued to disclose that she does drink daily but it is only light beer. Patient's reports she has been using toilet paper instead of pads because her bleeding is minimal. She also reports she usually drinks hot chocolate and it usually helps take her bleeding away. Reports beer intake daily and unaware of . CPS contacted by discharge planning. Psych consult placed. Pt. has been ambulating outside with plastic bags on legs as rain boots, has been drinking baby's formula and other odd behaviors noted by staff. She states that her sister brings her pond janelle so she can eat it. Patient disclosed that she is here visiting with her sister and that she has plans to stay. [place] She continued to state that she is staying with her sister to save money until she can put into place other services to get housing. she continued to disclose that she already has a community development coordinator lined up and while she was not expecting the baby she is "blessed." the patient and her are currently and she is originally from [place], [place]. Clinician spoke with patient's sister, bernardo [phone]. She states that she has no concerns for her sister and is very excited for them to come home soon. She requested the clinician to tell her sister and baby she loves them very much. Patient is alert and orientated to person, place, time and circumstance. Mood is euthymic with congruent affect. Patient denies suicidal and homicidal ideation. Patient denies auditory and visual hallucinations; no delusions are noted. thought process is logical, organized and linear. conversational speech was within normal rate, tone, and prosody. Eye contact was well maintained. Intellectual abilities appear to be average to low average range. Attention and concentration are good. Insight, judgment and impulse control are fair. Diagnosis Deferred. Impression/plan: Patient is psychiatrically cleared for discharge. Patient is denying suicidal and homicidal ideation. Patient is not demonstrating behaviour indicating responding to internal stimuli and not verbalizing any delusions. She does not meet criteria per [place] GS 122C. Clinician observed the patient's room to have multiple baby items given to her by friends and family; there is evidence that the patient has a strong support network. While patient verbalized she drinks the left over formula the baby does not drink; clinician observed a half full bottle. Patient also verbalized that she is breast feeding the baby. At this time, there are no indications that the patient's behaviour would cause harm and appears to be possibility cultural or her family norm.
[2016-10-06] MEDS: IBUPROFEN 800 MG TABLET PO SCH ×2 (05:33→14:22)
[2016-10-06 08:03] VITALS: BP 132/80
--- NOTE | 2016-10-06 08:53 | PDOC PROGRESS REPORT ---
Subjective-OB Subjective: Post Delivery Day: 36 year old. Denies any needs at this time doing well, on phone, walking, scant bleeding, bottle feeding, has help at home Physical Exam (OB) Vital Signs: Temp Pulse Resp BP Pulse Ox 98.1 F 60 17 132/80 H 99 10/06/16 08:11 10/06/16 08:11 10/06/16 08:11 10/06/16 07:28 10/06/16 08:11 Intake & Output 10/05/16 10/06/16 10/07/16 06:59 06:59 06:59 Intake Total 2300 Output Total 2500 Balance -200 - PIH/Pre-Eclampsia Clonus: Negative Headache: Absent - Lochia Lochia Amount: Scant < 10 ml Lochia Color: Rubra/Red, [place]/Brown - Abdomen Description: Soft Hernia Present: No Fundal Description: Firm, Midline Fundal Height: u/3 - u/4 Objective-Diagnostic Laboratory: 10/04/16 07:15 Assessment and Plan(PN) - Assessment and Plan (1) Alcohol abuse affecting Is this a current diagnosis for this admission?: Yes (2) Anemia Qualifiers: Anemia type: unspecified type Qualified Code(s): D64.9 - Anemia, unspecified Is this a current diagnosis for this admission?: Yes (3) (spontaneous vaginal delivery) Is this a current diagnosis for this admission?: Yes - Time Spent with Patient Time with patient: Less than 15 minutes Smoking Education Provided: Over 3 minutes Medications reviewed and adjusted accordingly: Yes - Disposition Anticipated Discharge: Home Within: Other - home today
--- NOTE | 2016-10-06 08:57 | PDOC DISCHARGE SUMMARY ---
Final Diagnosis Discharge Date: 10/06/16 - Final Diagnosis (1) Alcohol abuse affecting Is this a current diagnosis for this admission?: Yes (2) Anemia Is this a current diagnosis for this admission?: Yes (3) (spontaneous vaginal delivery) Is this a current diagnosis for this admission?: Yes Discharge Data - Discharge Medication Home Medications: Pnv W-O Ca No5/Fe Fumarate/FA [-U Multiple Vitamin Capsule] 1 cap PO DAILY #0 capsule 10/06/16 Reason(s) for Admission: Onset of Labor Intrapartum Procedure(s): Spontaneous Vaginal Delivery Complication(s): Laceration-Vaginal, Laceration-Periurethral Laceration-Degree: 2nd - [place] Data Baby 1 Female Weight: 3.43 kg Home with Mother: Yes Complications: No - Diagnosis Test Laboratory: Temp Pulse Resp BP Pulse Ox 98.1 F 60 17 132/80 H 99 10/06/16 08:11 10/06/16 08:11 10/06/16 08:11 10/06/16 07:28 10/06/16 08:11 10/03/16 10/03/16 10/04/16 14:26 15:25 07:15 RBC 4.87 4.22 Hgb 12.6 10.8 L Hct 38.4 33.3 L Urine Opiates Screen NEGATIVE - Discharge information/Instructions Discharge Activity: Activity As Tolerated, No Lifting Over 10 Pounds, Pelvic Rest, No tub bath Discharge Diet: As Tolerated, Regular Disposition: HOME, SELF-CARE Follow up with: [facility] in: 4, Weeks
[2016-10-06] MEDS: DOCUSATE SODIUM 100 MG CAPSULE PO SCH (10:23)
[2016-10-06] MEDS: FERROUS SULFATE 325 MG TABLET PO SCH (10:23)
[2016-10-06] MEDS: PRENATAL VITAMIN W-O CA NO5/FE FUMARATE/FA CAPSULE PO SCH (10:23)
[2016-10-06] MEDS: SENNOSIDES/DOCUSATE 8.6-50 MG 1 EACH TABLET PO SCH (10:23)
--- NOTE | 2016-10-25 08:08 | Delivery Summary ---
Del Sum A-C Datetime Report Generated by CPN: 10/25/2016 08:07 DELIVERY PERSONNEL DELIVERY PERSONNEL: ,[phone] Delivery Doctor:: Citlali Isaacs MD Labor and Delivery Nurse:: ТАТЬЯНА Montejo Labor and Delivery Nurse:: Angélica Ambrosio RN Human Resources Services Specialist/MASTIC SPRAYER: Ada Ruano, TRAFFIC RATE COMPUTER MATERNAL INFORMATION Delivery Anesthesia: Local Medications After Delivery: Pitocin Bolus-Please Comment Meds After Delivery Comment: pi Estimated Blood Loss (ml): 100 Maternal Complications: Other Other Maternal Complications: no care, delivered outside of hospital Provider Comments: pt delivered unattended at home. indicates she did not know of the at all. Placenta delivered here at L_D from vagina without difficulty after systemic pain medication given. Placenta delivered approximately 2 hours after patient delivered fetus. LABOR SUMMARY No. Babies in Womb: 0 Attempted: No Labor Anesthesia: None LABOR INFORMATION Reason for Induction: Not Applicable Reason for Induction- Other: del at home Oxytocin: N/A Group B Beta Strep: unknown Antibiotics # of Doses: none Steroids Given: None Reason Steroids Not Administered: Not Applicable MEMBRANES Membranes Rupture Method: Spontaneous Amniotic Fluid Color: Moderate Meconium Amniotic Fluid Amount: None Amniotic Fluid Odor: Foul STAGES OF LABOR Stage 3 hr: 1 Stage 3 min: 56 VAGINAL DELIVERY Episiotomy: None Laceration Extension: Second Degree Laceration Type: Vaginal; Periurethral Other Laceration: 3.0 chromic Laceration Repair: Yes Sponge Count Correct: N/A CSECTION DELIVERY Primary Indication: N/A Secondary Indication: N/A CSection Incidence: N/A Labor: N/A Elective: N/A CSection Incision: N/A Sterilization Procedure: Kaushal BABY A INFORMATION Delivery Date/Time: 10/03/2016 13:29 Method of Delivery: Vaginal Born in Route : Yes : N/A Forceps: N/A Vacuum Extraction: N/A Shoulder Dystocia : No PRESENTATION/POSITION BABY A Presentation: Cephalic Cephalic Presentation: Vertex Vertex Position: unknown Breech Presentation: N/A PLACENTA INFORMATION BABY A Placenta Delivery Time : 10/03/2016 15:25 Placenta Method of Delivery: Manual Removal Placenta Status: Retained SCORES BABY A Resuscitation Effort 1 min: N/A Resuscitation Effort 5 min: N/A Resuscitation Effort 10 min: N/A INFORMATION BABY A Outcome : Liveborn Condition : Fair Infant Sex: Female WEIGHT/LENGTH BABY A Birthweight (gm): 3435 Infant Weight (lb): 7 Infant Weight (oz): 9 Infant Length (in): 20.50 Infant Length (cm): 52.07 CORD INFORMATION BABY A Infant Suction: None ASSESSMENT BABY A Complications: Other Physical Findings at Delivery: Other Skin to Skin: No Glass Handler/ALS Called : No Care By: see nursery record Transferred To: Nursery BABY B INFORMATION : N/A SIGNATURES Signature: with User ID: [email or web address]
--- NOTE | 2016-11-10 15:04 | PDOC H&P ---
History of Present Illness Admission Date/PCP: 10/03/16 14:39 Patient complains of: delivery at home of term fetus. Patient claimed not to be aware of History of Present Illness: HUNTER RUIZ is a 36 year old female Social History Information Source: Patient, Relative Occupation: unemployed Lives with: Family Smoking Status: Current Every Day Smoker Frequency of Alcohol Use: Heavy Amount of Alcoholic Beverages Per Day: daily "light" beer per patient. unclear as to how much Hx Recreational Drug Use: Yes Drugs: Marijuana Family History Family History: Reviewed & Not Pertinent Parental Family History Reviewed: Yes Children Family History Reviewed: NA Sibling(s) Family History Reviewed.: Yes Medication/Allergy Home Medications: Pnv W-O Ca No5/Fe Fumarate/FA [-U Multiple Vitamin Capsule] 1 cap PO DAILY #0 capsule 10/06/16 Allergies/Adverse Reactions: No Known Allergies Allergy (Unverified 10/03/16 16:08) Review of Systems Constitutional: PRESENT: as per HPI Physical Exam - Physical Exam Vital Signs: Temp Pulse Resp BP Pulse Ox 98.1 F 60 17 132/80 H 99 10/06/16 08:11 10/06/16 08:11 10/06/16 08:11 10/06/16 07:28 10/06/16 08:11 General appearance: PRESENT: cooperative, disheveled Head exam: PRESENT: atraumatic Eye exam: PRESENT: conjunctiva pale GI/Abdominal exam: PRESENT: tenderness Gentrourinary exam: PRESENT: ecchymosis, erythema, lacerations Neurological exam: PRESENT: CN II-XII grossly intact - Gynecological Exam Labia: normal Urethra: other - periurethral tear Cervix: other - dilated 7-8 cm Uterus: normal - for post Result Laboratory Results: 10/04/16 07:15 Assessment & Plan - Diagnosis (1) Alcohol abuse affecting Qualifiers: Trimester: third trimester Qualified Code(s): O99.313 - Alcohol use complicating , third trimester Is this a current diagnosis for this admission?: Yes (2) (spontaneous vaginal delivery) Is this a current diagnosis for this admission?: Yes - Plan Summary Plan Summary: program planner, psych evaluation as needed. normal care
== END 2016-10-06 15:40 | disposition home or self-care (01) | DRG 769 ==
LOC: LR 14:39 → 2S 18:03
PROVIDERS: ADMIT Obstetrics & Gynecology; ATTEND Obstetrics & Gynecology
PROC: 0KQM0ZZ Repair Perineum Muscle, Open Approach (ICD-10-PCS; principal; 2016-10-03)
PROC: 0UQMXZZ Repair Vulva, External Approach (ICD-10-PCS; 2016-10-03)
DX: O71.82 Other specified trauma to perineum and vulva (principal); O70.1 Second degree perineal laceration during delivery; O90.81 Anemia of the puerperium; D64.9 Anemia, unspecified; O99.313 Alcohol use complicating pregnancy, third trimester; O99.333 Smoking (tobacco) complicating pregnancy, third trimester; F17.210 Nicotine dependence, cigarettes, uncomplicated; F10.10 Alcohol abuse, uncomplicated
CPT/HCPCS: 36415; 80307; 81001; 85025; 85027; 86592; 86701; 86762; 86803; 86804; 86850; 86900; 86901; 87340; 88307; 90715; J0295; J2175; J2590; J3490; J7120